=== PATIENT | female | born 1960 | race Caucasian/White ===

== ENCOUNTER 2020-09-21 10:00 | Inpatient (IN) | payer OTHER ==
[~2020-09-21] VITALS: Ht 154.9 cm; Wt 93.4 kg
[2020-09-22] MEDS ORDERED: SYNTHROID125 MCG PO (09:49)
[2020-09-22] MEDS ORDERED: ATACAND16 MG PO (09:50)
[2020-09-23] MEDS ORDERED: ESTRADIOL10 MCG (13:16)
== END 2020-09-24 14:08 | disposition home or self-care (01) | DRG 747 ==
LOC: O/R 09-23 09:51 → SURH 09-23 10:00 → OB/GYN 09-24 00:32 → SURH 09-24 10:00 → OB/GYN 09-24 14:08
PROVIDERS: ADMIT Specialist; ATTEND Specialist
PROC: 0UBG8ZZ Excision of Vagina, Via Natural or Artificial Opening Endoscopic (ICD-10-PCS; principal; 2020-09-23 19:15)
DX: N89.3 Dysplasia of vagina, unspecified (principal); I10 Essential (primary) hypertension; E03.9 Hypothyroidism, unspecified